=== PATIENT | female | born 1980 | race African-American/Black ===

== ENCOUNTER 2016-11-15 13:33 | Emergency (ER) | payer OTHER ==
[~2016-11-15] VITALS: Ht 167.6 cm; Wt 68.5 kg
[2016-11-15 13:59] VITALS: BP 113/57
--- NOTE | 2016-11-15 14:00 | EKG ---
[address] [address] Test Date: 2016-11-15 Test Time: 13:46:08 Pat Name: THEODORE ADRIAN Department: Room: Gender: F Resin Maker: : 1980 Requested By: AYO NIEVES Order Number: [id number] Reading MD: Benito Linn Measurements Intervals [place] Rate: 46 P: 71 SD: 166 QRS: 71 QRSD: 68 T: 59 QT: 454 QTc: 402 Interpretive Statements SINUS BRADYCARDIA Electronically Signed On 11-21-2016 14:55:39 CDT by Benito Linn
--- NOTE | 2016-11-15 14:01 | PHYS DOC ---
General Chief Complaint: DIZZY/LIGHT HEADED Stated Complaint: SOA,DIZZY,NECK PAIN Time Seen by MD: 13:42 Source: patient Exam Limitations: no limitations Problems: History of Present Illness Initial Comments Pt is 36/F to ED c/o dizziness/sob. 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 Pt states testing began at 0530 and finished approximately 0715. Pt states that since finishing PT she's felt foggy, lightheaded, photophobia, mild global GONZALES. Pt is bradycardic in ED (HR 40's), pt wears HR monitor on her wrist and states her HR normally runs in the 40's. Pt states she runs 5 miles at least three times weekly and maintains her fitness. States that she felt well last night/this am and was well hydrated. Different today, pt states that on her last physical test of the morning sit ups she was not keeping up her usual pace. In trying to get a few extra reps before time ran out pt says she accidentally slammed the back of her head down on the ground. States she was dazed initially with mild nausea no emesis, no LOC/focal neurodef and thru the day has developed neck stiffness/soreness ( lateral, no midline or bony pain). She denies prior concussion diagnosis. Timing/Duration: 4-6 hours Severity: moderate Modifying Factors: worse with movement, improves with rest Associated Symptoms: headaches, loss of appetite, malaise, nausea/vomiting, shortness of breath, weakness, other Allergies: Coded Allergies: Penicillins (Verified Allergy, Unknown, 11/15/16) morphine (Verified Allergy, Unknown, 11/15/16) Past Medical History Medical History: no pertinent history Surgical History: no surgical history Social History Smoker: non-smoker Alcohol: none Drugs: none Review of Systems Constitutional: denies chills, denies diaphoresis, denies fever, malaise weakness EENTM: see HPIdenies eye pain, denies blurred vision, denies double vision, denies ear pain, denies ear discharge, denies nose pain, denies nose congestion , denies throat swelling Respiratory: see HPIdenies cough, denies wheezing Cardiovascular: denies chest pain, denies edema, denies palpitations, denies syncope Gastrointestinal: denies abdominal pain, denies constipation, denies diarrhea, nauseadenies vomiting Genitourinary: denies dysuria, denies frequency, denies hematuria Musculoskeletal: denies back pain, denies joint swelling, denies neck pain Psychiatric/Neurological: see HPI headachedenies numbness, denies paresthesia Hematologic/Lymphatic: denies blood clots, denies easy bleeding, denies easy bruising Physical Exam General Appearance: WD/WN, no apparent distress Eyes: bilateral eye EOMI, bilateral eye PERRL, bilateral eye normal inspection Ear, Nose, Throat: hearing grossly normal, normal ENT inspection, normal pharynx (dry membranes) Neck: non-tender, supple Respiratory: normal breath sounds, no respiratory distress Cardiovascular: normal peripheral pulses, bradycardia Gastrointestinal: non tender, soft Back: no CVA tenderness, no vertebral tenderness Extremities: non-tender, normal inspection Neurologic/Psychiatric: see wheeler II-XII nml as tested, no motor/sensory deficits, alert, normal mood/affect, oriented x 3 Skin: normal color, warm/dry Orders, Labs, Meds EKG: sinus bradycardia 46 bpm, no STEMI Chest AP: no acute cardiopulmonary process 1536: Pt feeling better, I discussed her results with her. Troponin I 0.033, will draw another now to determine possible trend. Pt will have prolonged ED course awaiting recheck of troponin I, with delay due to laboratory. 1706: Pt discussed with Dr Linn, he recommends d/c home with close PCP follow up and outpt cardiology workup. Departure Time of Disposition: 17:08 Disposition: 01 HOME, SELF-CARE Diagnosis: generalized fatigue, abnormal labs Condition: STABLE Patient Instructions: Cardiac-Specific Troponin I and T, Fatigue Additional Instructions: Aggressive hydration with gatorade, water. Take one 81mg aspirin daily. Rest, no strenuous activity/work/exertion until cleared by your doctor. Follow up at [facility] tomorrow for recheck and to schedule outpatient cardiology evaluation. Return to ED with new or changing symptoms. AYO NIEVES DO Nov 15, 2016 14:01
[2016-11-15] MEDS: IV NORMAL SALINE 1,000ML 1,000 ML IV SCH ×2 (14:10→14:48)
[2016-11-15] MEDS: ASPIRIN 81 MG TAB.CHEW PO ONE (14:10)
[2016-11-15 14:14] LABS: BASO % 1 % (0-3); EOS % 1 % (0-3); HEMATOCRIT 34.3 % (36.0-47.0); HEMOGLOBIN 11.7 g/dL (12.0-15.5); LYMPH # 2.5 x10^3/uL (1.0-4.8); LYMPH % 44 % (24-48); MEAN CORPUSCULAR HEMOGLOBIN 32 pg (25-35); MEAN CORPUSCULAR HGB CONC 34 g/dL (31-37); MEAN CORPUSCULAR VOLUME 93 fL (79-100); MONO # 0.3 x10^3/uL (0.0-1.1); MONO % 5 % (0-9); NEUT # 2.8 x10^3uL (1.8-7.7); NEUT % 50 % (31-73); PLATELET COUNT 243 x10^3/uL (140-400); RED BLOOD COUNT 3.69 x10^6/uL (3.50-5.40); RED CELL DISTRIBUTION WIDTH 13.7 % (11.5-14.5); WHITE BLOOD COUNT 5.6 x10^3/uL (4.0-11.0)
--- NOTE | 2016-11-15 14:24 | RAD ---
Portable chest, 11/15/2016: History: Breathing difficulty. The heart size is normal. The lungs are clear. There is no evidence of pleural fluid. IMPRESSION: No acute cardiopulmonary abnormality is detected.
[2016-11-15 14:33] LABS: ALBUMIN 3.3 g/dL (3.4-5.0); ALBUMIN/GLOBULIN RATIO 0.9 (1.0-1.7); CALCIUM 8.4 mg/dL (8.5-10.1); GFR 62.1; MAGNESIUM 2.1 mg/dL (1.8-2.4); POTASSIUM 3.6 mmol/L (3.5-5.1); TOTAL BILIRUBIN 0.3 mg/dL (0.2-1.0); TOTAL PROTEIN 6.8 g/dL (6.4-8.2)
[2016-11-15 17:27] LABS: BILIRUBIN,URINE NEG (NEG); CLARITY,URINE CLEAR; COLOR,URINE YELLOW; GLUCOSE,URINE NEG (NEG)
[2016-11-15 17:28] LABS: BACTERIA,URINE FEW /HPF (0-FEW); NITRITE,URINE NEG (NEG); RBC,URINE OCC /HPF (0-2); UROBILINOGEN,URINE 0.2 mg/dL (0.2 mg/dL); WBC,URINE OCC /HPF (0-4)
[2016-11-15 17:29] LABS: SQUAMOUS EPITHELIAL CELL,UR MOD /LPF
== END 2016-11-15 17:30 | disposition home or self-care (01) ==
LOC: ER 13:33
DX: R53.83 Other fatigue (principal); R07.9 Chest pain, unspecified; R06.02 Shortness of breath; R11.0 Nausea; Z88.0 Allergy status to penicillin; Z88.5 Allergy status to narcotic agent
CPT/HCPCS: 36415; 71010; 80053; 81001; 82550; 83735; 84484; 85027; 93005; 96360; 96361; 99285-25; J7030

== ENCOUNTER → 2017-11-16 | Outpatient (CLI) | payer OTHER ==
--- NOTE | 2017-11-16 16:03 | RAD ---
EXAM: Abdomen and pelvis CT without intravenous contrast. HISTORY: Right flank pain. TECHNIQUE: Computed tomographic images of the abdomen and pelvis were obtained without contrast. Multiplanar reformatting was performed. *One or more of the following individualized dose reduction techniques were utilized for this examination: 1. Automated exposure control. 2. Adjustment of the mA and/or kV according to patient size. 3. Use of iterative reconstruction technique. COMPARISON: None. FINDINGS: Evaluation of the lower thorax is unremarkable. No hepatic lesion is seen. The gallbladder is contracted due to the postprandial status the patient. The pancreas, spleen and adrenal glands are unremarkable on this noncontrast exam. There are faint patchy areas of hyperdensity within both kidneys, not clearly within limits to suggest nephrocalcinosis or medullary sponge kidney. There is no evidence of obstructive uropathy. The urinary bladder is decompressed. There is moderate colonic stool. There is no evidence of bowel obstruction. There is diastasis of the ventral abdominal wall musculature with protrusion of a short segment of colon. No pathologically enlarged lymph node is seen. The uterus is retroverted. There are prominent bilateral ovarian follicles and there is a small amount of pelvic free fluid, within physiologic limits. There is no suspicious osseous lesion. IMPRESSION: 1. No evidence of obstructive uropathy or alternative findings correlate with reported flank pain. There are few calcifications within the right hemipelvis which are likely due to phleboliths. No obstructing stone is seen. 2. Moderate colonic stool. Electronically signed by: Tyesha Whitten MD (11/16/2017 4:00 PM) [id number]
== END | disposition home or self-care (01) ==
LOC: CT 15:16
PROVIDERS: ATTEND Family Medicine
DX: N20.0 Calculus of kidney (principal)
CPT/HCPCS: 74176